=== PATIENT | male | born 1985 | race Caucasian/White ===

== ENCOUNTER 2017-07-11 12:41 | Emergency (ER) | payer SELFPAY | END 2017-07-11 17:20 | disposition left against medical advice (07) | LOC: MADERS 12:41 | DX: Z53.21 Procedure and treatment not carried out due to patient leaving prior to being seen by health care provider (principal) ==

== ENCOUNTER 2019-04-30 10:15 | Emergency (ER) | payer OTHER, SELFPAY ==
[2019-04-30] MEDS ORDERED: HYDROcodone/Acetaminophen 5/325 mg Tablet ONE (11:12)
--- NOTE | 2019-04-30 11:29 | CT ---
CT BRAIN WITHOUT CONTRAST: HISTORY: Injury, headache FINDINGS: No evidence of acute infarct, hemorrhage, midline shift is seen. There is an arachnoid cyst in the l eft middle cranial fossa. The ventricular size is appropriate and the basilar cisterns are patent. The bony calvarium is intact. There is mucosal disease in the paranasal sinuses. The fractures involving the left frontal sinus gomez in the roof of the left orbit. IMPRESSION: No CT evidence of acute intracranial process. Evaluation of the facial fractures with dedicated CT scan of the facial bones is recommended.
--- NOTE | 2019-04-30 11:35 | CT ---
CT CERVICAL SPINE WITHOUT CONTRAST: Date: 04/30/19 INDICATION: Injury to neck. FINDINGS: Cervical vertebra maintain normal height and alignment. Disc spaces are preserved. There is no eviden ce of cervical spine fracture. IMPRESSION: 1. No evidence of cervical spine fracture. 2. Incidentally noted is mild mucosal thickening in the visualized paranasal sinuses. POS: [facility]
[2019-04-30 11:37] LABS: #Basophils 0.2 thou/uL (0.0-0.2); #Eosinphils 0.4 thou/uL (0.0-0.7); #Lymphocytes 1.6 thou/uL (1.20-3.40); #Monocytes 0.6 thou/uL (0.11-0.59); #Neutrophils 6.8 thou/uL (1.40-6.50); %Basophils 1.8 % (0.0-1.0); %Eosinophils 4.4 % (0.0-10.0); %Lymphocytes 16.8 % (21.0-51.0); %Neutrophils 71.1 % (42.0-75.0); Mean Corpuscular HGB CONC 32.7 g/dL (32.0-36.0); Mean Corpuscular Hemoglobin 28.2 pg (27.0-31.0); Mean Corpuscular Volume 86.3 fL (78.0-98.0); Mean Platelet Volume 10.1 fL (7.4-10.4); Platelet Count 175 thou/uL (130-400); RBC Distribution Width 12.1 % (11.5-14.5); Red Blood Cell (RBC) Count 5.32 mill/uL (4.70-6.10); White Blood Cell (WBC) Count 9.6 thou/uL (4.8-10.8)
[2019-04-30 11:40] LABS: INR-International Normal Ratio 1.1; Prothrombin Time 14.3 SEC (12.0-14.7)
[2019-04-30 11:48] LABS: ALT (SGPT) 24 U/L (8-55); AST (SGOT) 17 U/L (5-34); Albumin 4.7 g/dL (3.5-5.0); Alkaline Phosphatase 68 U/L (40-110); Anion Gap 14 mmol/L (10-20); BUN (Urea Nitrogen) 17 mg/dL (8.9-20.6); Bilirubin, Total 0.7 mg/dL (0.2-1.2); Calc. Creatinine Clearance 0 mL/min (70-130); Calcium 10.3 mg/dL (7.8-10.44); Carbon Dioxide 27 mmol/L (22-29); Chloride 105 mmol/L (98-107); Estimated GFR-MDRD 78; Globulin 2.8 g/dL (2.4-3.5); Glucose 103 mg/dL (70-105); Potassium 4.7 mmol/L (3.5-5.1); Protein, Total 7.5 g/dL (6.0-8.3); Sodium 141 mmol/L (136-145)
--- NOTE | 2019-04-30 12:16 | CT ---
CT FACIAL BONES WITHOUT CONTRAST: Date: 04/30/19 INDICATION: Trauma. Injury to forehead. FINDINGS: Nasal bones appear intact. There is fracture of the outer wall of the left frontal sinus with depression and comminution. Air fl uid level in the left frontal sinus. The fracture extends anteriorly into the anterior left lamina pa pyracea at the junction with the nasal bone. There is opacification at the anterior ethmoid air cells . This involves the anterior superior medial wall of the left orbit at the lamina papyracea. There are also lamina papyracea fractures seen inferior posteriorly involving the medial wall of the left orbit. Diffuse opacification of the posterior ethmoid air cells at this location. This also invo lves the medial floor of the left orbit at the junction with the lamina papyracea. There is a subtle fracture also seen involving the anterior wall of the right maxillary sinus inferio rly which extends through the floor of the right maxillary sinus with associated mucosal edema. The zygoma appear intact. The inner wall of both frontal sinuses appear intact with no evidence of intracranial extension. Mandible appears intact. IMPRESSION: 1. Depressed comminuted fracture involving the outer wall of the left frontal sinus with depression of the outer wall fragments. Fracture extends medially to involve the lamina papyracea anteriorly and inferomedially which involves portions of the medial wall of the left orbit both superiorly and infe riorly. The inferior portions involve the medial floor of the left orbit. 2. There is a nondisplaced linear fracture through the right maxillary sinus involving the anterior wall and extending obliquely through the posterior wall at the floor of the right maxillary antrum wi th associated mucosal edema. POS: [facility]
== END 2019-04-30 13:45 ==
LOC: MADERS 10:15
DX: S02.832A Fracture of medial orbital wall, left side, initial encounter for closed fracture (principal); S02.40CA Maxillary fracture, right side, initial encounter for closed fracture; S02.19XA Other fracture of base of skull, initial encounter for closed fracture; F17.220 Nicotine dependence, chewing tobacco, uncomplicated; W22.8XXA Striking against or struck by other objects, initial encounter
CPT/HCPCS: 36415; 70450; 70486; 72125; 80053; 85025; 85610